=== PATIENT | female | born 1955 | race Caucasian/White ===

== ENCOUNTER → 2017-06-03 | Outpatient (CLI) | payer OTHER | END | disposition home or self-care (01) | LOC: RAD 10:22 | DX: M51.36 Other intervertebral disc degeneration, lumbar region (principal); Z91.81 History of falling | CPT/HCPCS: 72100 ==

== ENCOUNTER 2017-07-01 15:42 | Emergency (ER) | payer BC, OTHER ==
[2017-07-01] MEDS: IV NORMAL SALINE 1000ML BAG 1,000 ML IV ×2 (17:24→18:26)
[2017-07-01] MEDS: MECLIZINE HCL 12.5 MG TABLET. PO (17:24)
[2017-07-01 17:25] LABS: ADD MAN DIFF? NO
[2017-07-01 17:28] LABS: BASO # 0.1 x10^3/uL (0.0-0.2); BASO % 1 % (0-3); EOS # 0.1 x10^3/uL (0.0-0.7); EOS % 1 % (0-3); HEMATOCRIT 44.2 % (36.0-47.0); HEMOGLOBIN 15.2 g/dL (12.0-15.5); LYMPH # 1.9 x10^3/uL (1.0-4.8); LYMPH % 22 % (24-48); MEAN CORPUSCULAR HEMOGLOBIN 32 pg (25-35); MEAN CORPUSCULAR HGB CONC 34 g/dL (31-37); MEAN CORPUSCULAR VOLUME 93 fL (79-100); MONO # 0.7 x10^3/uL (0.0-1.1); MONO % 8 % (0-9); NEUT # 5.8 x10^3uL (1.8-7.7); NEUT % 68 % (31-73); PLATELET COUNT 281 x10^3/uL (140-400); RED BLOOD COUNT 4.76 x10^6/uL (3.50-5.40); WHITE BLOOD COUNT 8.7 x10^3/uL (4.0-11.0)
[2017-07-01 17:50] LABS: ALBUMIN 4.3 g/dL (3.4-5.0); ALK PHOS 110 U/L (46-116); ALT (SGPT) 99 U/L (14-59); ANION GAP 15 (6-14); AST (SGOT) 38 U/L (15-37); BLOOD UREA NITROGEN 14 mg/dL (7-20); BUN/CREATININE RATIO 13 (6-20); CALCIUM 9.8 mg/dL (8.5-10.1); CARBON DIOXIDE 24 mmol/L (21-32); CHLORIDE 93 mmol/L (98-107); CREATININE 1.1 mg/dL (0.6-1.0); GFR 50.2; POTASSIUM 4.3 mmol/L (3.5-5.1); SODIUM 132 mmol/L (136-145); TOTAL BILIRUBIN 0.8 mg/dL (0.2-1.0); TOTAL PROTEIN 8.6 g/dL (6.4-8.2)
[2017-07-01 17:51] LABS: TROPONINI < 0.017 ng/mL (0.000-0.055)
[2017-07-01 17:52] LABS: GLUCOSE 540 mg/dL (70-99)
[2017-07-01 17:55] LABS: THYROID STIM HORMONE (TSH) 1.469 uIU/mL (0.358-3.74)
[2017-07-01] MEDS: INSULIN REGULAR 100 UNIT/ML 3ML VIAL. IV ×2 (18:27→20:01)
[2017-07-01 19:17] LABS: POC GLUCOSE 349 mg/dL (70-99)
[2017-07-01 19:32] LABS: BILIRUBIN,URINE NEGATIVE (NEG); CLARITY,URINE CLEAR; GLUCOSE,URINE >=1000 mg/dL (NEG); NITRITE,URINE NEGATIVE (NEG); PROTEIN,URINE NEGATIVE (NEG-TRACE); UROBILINOGEN,URINE 0.2 mg/dL (0.2 mg/dL)
[2017-07-01] MEDS: metFORMIN 500 MG TABLET PO (19:37)
[2017-07-01 19:42] LABS: BACTERIA,URINE 0 /HPF (0-FEW); COLOR,URINE STRAW; RBC,URINE 0 /HPF (0-2); SQUAMOUS EPITHELIAL CELL,UR OCC /LPF; WBC,URINE OCC /HPF (0-4)
[2017-07-01 20:42] LABS: POC GLUCOSE 277 mg/dL (70-99)
== END 2017-07-01 20:52 | disposition home or self-care (01) ==
LOC: ER 15:42
DX: E11.9 Type 2 diabetes mellitus without complications (principal); E86.0 Dehydration; I10 Essential (primary) hypertension
CPT/HCPCS: 36415; 70450; 71045; 80053; 81001; 82962; 84443; 84484; 85025; 93005; 96361; 96374; 96376; 99285-25; J1815; J2060; J7030; J8597